=== PATIENT | female | born 1985 | race Two or more races ===

== ENCOUNTER 2017-07-09 06:05 | Day surgery (SDC) | payer OTHER ==
[2017-07-09] MEDS ORDERED: CODE1TAB37 PO (11:37)
[2017-07-09] MEDS ORDERED: DOXYCYCLINE HY100 MG PO (11:37)
== END 2017-07-09 17:20 | disposition home or self-care (01) ==
LOC: CIR.AMB 06:05
DX: O02.1 Missed abortion (principal); G89.18 Other acute postprocedural pain; Z3A.01 Less than 8 weeks gestation of pregnancy

== ENCOUNTER → 2019-02-01 | Outpatient (CLI) | payer OTHER ==
[~2019-02-01] MED LIST: CODE1TAB37 PO; DOXYCYCLINE HY100 MG PO
== END | disposition home or self-care (01) ==
LOC: PRENATAL 09:00
DX: O35.3XX0 Maternal care for (suspected) damage to fetus from viral disease in mother, not applicable or unspecified (principal)

== ENCOUNTER → 2019-02-25 | Outpatient (CLI) | payer OTHER | END | disposition home or self-care (01) | LOC: PRENATAL 09:15 | DX: O26.842 Uterine size-date discrepancy, second trimester (principal); O35.3XX0 Maternal care for (suspected) damage to fetus from viral disease in mother, not applicable or unspecified ==

== ENCOUNTER → 2019-04-22 | Outpatient (CLI) | payer OTHER | END | disposition home or self-care (01) | LOC: PRENATAL 08:34 | DX: O26.843 Uterine size-date discrepancy, third trimester (principal); O35.3XX1 Maternal care for (suspected) damage to fetus from viral disease in mother, fetus 1; Z3A.30 30 weeks gestation of pregnancy ==

== ENCOUNTER → 2019-05-20 | Outpatient (CLI) | payer OTHER | END | disposition home or self-care (01) | LOC: PRENATAL 10:00 | DX: O26.843 Uterine size-date discrepancy, third trimester (principal); O36.8130 Decreased fetal movements, third trimester, not applicable or unspecified ==

== ENCOUNTER 2019-06-03 11:15 | Inpatient (IN) | payer OTHER ==
[~2019-06-03] VITALS: Ht 170.2 cm; Wt 88.0 kg
[2019-06-30] MEDS ORDERED: PRENATAL TABLE1 EAC3 PO (09:30)
[2019-06-30] MEDS ORDERED: NASAL MIST126 ML (09:30)
[2019-07-02] MEDS ORDERED: PROFERRIN-FORT1 EACH PO (08:33)
== END 2019-07-03 14:06 | disposition home or self-care (01) | DRG 807 ==
LOC: OB/GYN 06-24 14:45 → LDR 06-30 07:29 → SURG-SUITE 06-30 20:39 → LDR 07-01 14:45 → SURG-SUITE 07-03 14:06
PROVIDERS: ADMIT Obstetrics & Gynecology
PROC: 10E0XZZ Delivery of Products of Conception, External Approach (ICD-10-PCS; principal; 2019-06-30)
PROC: 0KQM0ZZ Repair Perineum Muscle, Open Approach (ICD-10-PCS; 2019-06-30)
PROC: 3E033VJ Introduction of Other Hormone into Peripheral Vein, Percutaneous Approach (ICD-10-PCS; 2019-06-30)
PROC: 4A1HXCZ Monitoring of Products of Conception, Cardiac Rate, External Approach (ICD-10-PCS; 2019-06-30)
DX: O70.1 Second degree perineal laceration during delivery (principal); Z37.0 Single live birth; O99.013 Anemia complicating pregnancy, third trimester; Z3A.39 39 weeks gestation of pregnancy

== ENCOUNTER 2022-04-03 08:38 | Outpatient (CLI) | payer OTHER ==
[~2022-04-03 08:38] MED LIST changes: +NASAL MIST126 ML; +PRENATAL TABLE1 EAC3 PO; +PROFERRIN-FORT1 EACH PO
== END 2022-04-03 09:37 | disposition home or self-care (01) ==
LOC: PRENATAL 08:38
PROVIDERS: ATTEND Obstetrics & Gynecology Maternal & Fetal Medicine
DX: Z76.1 Encounter for health supervision and care of foundling (principal)

== ENCOUNTER 2022-05-02 10:06 | Outpatient (CLI) | payer OTHER | END 2022-05-02 11:24 | disposition home or self-care (01) | LOC: PRENATAL 10:06 | PROVIDERS: ATTEND Obstetrics & Gynecology Maternal & Fetal Medicine | DX: O35.9XX0 Maternal care for (suspected) fetal abnormality and damage, unspecified, not applicable or unspecified (principal); O35.3XX0 Maternal care for (suspected) damage to fetus from viral disease in mother, not applicable or unspecified; O09.529 Supervision of elderly multigravida, unspecified trimester; Z3A.24 24 weeks gestation of pregnancy ==

== ENCOUNTER 2022-07-01 08:10 | Outpatient (CLI) | payer OTHER | END 2022-07-01 08:57 | disposition home or self-care (01) | LOC: PRENATAL 08:10 | PROVIDERS: ATTEND Obstetrics & Gynecology Maternal & Fetal Medicine | DX: O26.849 Uterine size-date discrepancy, unspecified trimester (principal); O35.9XX0 Maternal care for (suspected) fetal abnormality and damage, unspecified, not applicable or unspecified; O09.529 Supervision of elderly multigravida, unspecified trimester; O36.8199 Decreased fetal movements, unspecified trimester, other fetus; Z3A.33 33 weeks gestation of pregnancy ==

== ENCOUNTER 2022-07-30 08:22 | Outpatient (CLI) | payer OTHER | END 2022-07-30 09:54 | disposition home or self-care (01) | LOC: PRENATAL 08:22 | PROVIDERS: ATTEND Obstetrics & Gynecology Maternal & Fetal Medicine | DX: O26.849 Uterine size-date discrepancy, unspecified trimester (principal); O36.8199 Decreased fetal movements, unspecified trimester, other fetus; O09.529 Supervision of elderly multigravida, unspecified trimester; Z3A.37 37 weeks gestation of pregnancy ==

== ENCOUNTER 2022-07-30 11:10 | Inpatient (IN) | payer OTHER ==
[~2022-07-30] VITALS: Ht 170.2 cm; Wt 3.2 kg
[2022-08-07] MEDS ORDERED: POLY119PG PO (08:27)
[2022-08-07] MEDS ORDERED: PROBIOTIC1 EAC4 PO (08:27)
[2022-08-10] MEDS ORDERED: Tylenol #3 PO (12:08)
[2022-08-10] MEDS ORDERED: NAPR500T14 PO (12:08)
== END 2022-08-10 12:29 | disposition home or self-care (01) | DRG 788 ==
LOC: LDR 08-07 06:32 → O/R 08-07 17:33 → OB/GYN 08-07 20:19
PROVIDERS: ADMIT Obstetrics & Gynecology; ATTEND Obstetrics & Gynecology
PROC: 4A1HXCZ Monitoring of Products of Conception, Cardiac Rate, External Approach (ICD-10-PCS; 2022-08-07)
PROC: 10D00Z1 Extraction of Products of Conception, Low, Open Approach (ICD-10-PCS; principal; 2022-08-07 16:15)
DX: O82 Encounter for cesarean delivery without indication (principal); O75.81 Maternal exhaustion complicating labor and delivery; Z37.0 Single live birth; Z20.822 Contact with and (suspected) exposure to COVID-19; Z3A.38 38 weeks gestation of pregnancy